=== PATIENT | female | born 2000 | race African-American/Black ===

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

== ENCOUNTER 2024-07-19 06:37 | Emergency (ER) | payer MEDICAID, SELFPAY | END 2024-07-19 07:12 | LOC: NAV ERS 06:37 | DX: I10 Essential (primary) hypertension (principal) | CPT/HCPCS: 99283 ==